=== PATIENT | female | born 1965 | race Caucasian/White ===

== ENCOUNTER 2019-11-26 06:56 | Outpatient (CLI) | payer OTHER ==
--- NOTE | 2019-11-26 07:43 | ULT ---
Thyroid sonogram HISTORY: Thyroid nodule. FINDINGS: No comparison. Right thyroid lobe is 5.9 cm length. Within the posterior aspect of the central portion is a well-cir cumscribed, slightly heterogeneous hypoechoic solid nodule measuring up to 2.2 cm x 1.5 cm x 1.3 cm greatest diameters. No internal calcifications. TI RADS 4. Moderately suspicious. Left thyroid lobe measures up to 4.6 cm. Within the central portion is a somewhat poorly marginated, slightly heterogeneous solid nodule measuring 1.6 cm length by 1.2 cm depth by 1.0 cm with. No internal calcifications. TI RADS 4. Moderately suspicious. IMPRESSION : Dominant nodules within each thyroid lobe as detailed above Right lobe TI RADS 4. Moderately suspicious. Based on the size, FNA cytology recommended. Left lobe TI RADS 4. Moderately suspicious. Based on the size, sonographic follow at 1, 2, 3, and 5 y ears is recommended.
== END 2019-11-26 06:57 | disposition home or self-care (01) ==
LOC: BICULT 06:56
PROVIDERS: ATTEND Internal Medicine Cardiovascular Disease
DX: E04.2 Nontoxic multinodular goiter (principal)
CPT/HCPCS: 76536

== ENCOUNTER 2020-09-27 08:50 | Outpatient (CLI) | payer OTHER | END 2020-09-27 08:51 | disposition home or self-care (01) | LOC: BICMAMMO 08:50 | PROVIDERS: ATTEND Internal Medicine | DX: Z12.31 Encounter for screening mammogram for malignant neoplasm of breast (principal) | CPT/HCPCS: 77063; 77067 ==

== ENCOUNTER 2020-10-05 09:18 | Outpatient (CLI) | payer OTHER | END 2020-10-05 09:19 | disposition home or self-care (01) | LOC: BICRAD 09:18 | PROVIDERS: ATTEND Internal Medicine Critical Care Medicine | DX: R06.00 Dyspnea, unspecified (principal) | CPT/HCPCS: 71046 ==